=== PATIENT | male | born 1980 | race Two or more races ===

== ENCOUNTER 2025-10-14 11:38 | Emergency (ER) | payer BC ==
[~2025-10-14] VITALS: Ht 182.9 cm; Wt 86.6 kg
[2025-10-14 11:41] VITALS: TEMP 98.1
[2025-10-14] MEDS ORDERED: KETOROLAC TROMETHAMINE 15 MG/ML VIAL ONE ×2 (11:54→12:57)
[2025-10-14] MEDS ORDERED: ONDANSETRON HCL/PF 4 MG/2 ML VIAL ONE (11:54)
[2025-10-14] MEDS: IV LR 1000 ML 1,000 ML IV ONE (11:57)
[2025-10-14] MEDS: KETOROLAC TROMETHAMINE 15 MG/ML VIAL IV ONE ×2 (11:58→12:59)
[2025-10-14] MEDS: ONDANSETRON HCL/PF 4 MG/2 ML VIAL IVP ONE (12:02)
[2025-10-14 12:10] LABS: PLATELET COUNT (AUTO) 261 K/uL (150-450); RED BLOOD CELL COUNT(AUTO) 5.69 MIL/uL (4.5-6.0); RED CELL DISTRIBUTION WIDTH 14.3 % (11.5-15.0); WHITE BLOOD COUNT (AUTO) 7.2 K/uL (4.3-11.0)
[2025-10-14 12:18] LABS: APPEARANCE,URINE CLEAR (CLEAR); BLOOD, URINE 2+ Ery/uL (NEGATIVE); LEUKOCYTE ESTERASE ,URINE NEGATIVE (NEGATIVE); NITRITE, URINE NEGATIVE (NEGATIVE); UGLUCOSE NEGATIVE (NEGATIVE)
[2025-10-14 12:33] LABS: CALCIUM, SERUM 8.4 mg/dL (8.5-10.1); CREATININE 1.3 mg/dL (0.6-1.3); SODIUM SERUM 142.0 mmol/L (136-145); UREA NITROGEN, BLOOD 19.0 mg/dL (7-18)
[2025-10-14 12:34] LABS: ADD URINE CULTURE NO; SQUAMOUS EPITHELIAL CELL,UR Few /HPF (None Seen)
[2025-10-14] MEDS ORDERED: ONDA4TAB11 PO (12:35)
[2025-10-14] MEDS ORDERED: TAMS-12 PO (12:35)
[2025-10-14] MEDS ORDERED: KETO10TA2 PO (12:35)
[2025-10-14 12:46] LABS: ASPARTATE AMINOTRANSFERASE 21.0 U/L (15-37); TOTAL PROTEIN, SERUM 7.7 g/dL (6.4-8.2)
[2025-10-14 13:53] VITALS: BP 124/62; O2SAT 96
== END 2025-10-14 13:51 | disposition home or self-care (01) ==
LOC: ER 11:46
DX: N20.0 Calculus of kidney (principal); F17.200 Nicotine dependence, unspecified, uncomplicated; R06.02 Shortness of breath
CPT/HCPCS: 99285; 74176; 96374; 96361; 96375; 96376; 85025; 80048; 83690; 80076; 83735; 81001; 36415; J1885 ×2; J2405; J7120 ×2; J7030